=== PATIENT | female | born 1975 | race Native Hawaiian/Other Pacific Islander ===

== ENCOUNTER 2018-09-07 21:06 | Emergency (ER) | payer OTHER ==
[~2018-09-07] VITALS: Ht 160 cm; Wt 66.2 kg
[2018-09-07 23:14] LABS: PLATELET COUNT 241 K/uL (152-353)
[2018-09-08 00:33] VITALS: BP 118/72; TEMP 98.1
== END 2018-09-08 00:34 | disposition home or self-care (01) ==
LOC: ED 21:06
PROVIDERS: Family Medicine
DX: R10.30 Lower abdominal pain, unspecified (principal); M54.5 Low back pain; O28.8 Other abnormal findings on antenatal screening of mother; Z3A.09 9 weeks gestation of pregnancy; R82.71 Bacteriuria
CPT/HCPCS: 36415; 81000; 84702; 85027; 99282

== ENCOUNTER 2018-10-22 11:51 | Outpatient (CLI) | payer OTHER ==
[2018-10-22 12:37] LABS: PLATELET COUNT 252 K/uL (152-353)
[2018-10-22 12:46] LABS: POTASSIUM 3.6 mmol/L (3.6-5.2)
== END 2018-10-22 19:21 | disposition home or self-care (01) ==
LOC: LABW 11:51
PROVIDERS: Family Medicine
DX: R11.0 Nausea (principal); K21.9 Gastro-esophageal reflux disease without esophagitis; Z34.90 Encounter for supervision of normal pregnancy, unspecified, unspecified trimester
CPT/HCPCS: 36415; 80053; 81000; 84439; 84443; 85027

== ENCOUNTER 2019-05-22 08:20 | Outpatient (CLI) | payer OTHER ==
[2019-05-22 08:43] LABS: PLATELET COUNT 261 K/uL (152-353)
[2019-05-22 09:37] LABS: POTASSIUM 3.4 mmol/L (3.6-5.2)
== END 2019-05-22 22:11 | disposition home or self-care (01) ==
LOC: LABW 08:20
PROVIDERS: Family Medicine
DX: R79.89 Other specified abnormal findings of blood chemistry (principal); R63.4 Abnormal weight loss; D64.9 Anemia, unspecified; R10.2 Pelvic and perineal pain
CPT/HCPCS: 36415; 80053; 81000; 84439; 84443; 85027